=== PATIENT | male | born 1995 | race Caucasian/White ===

== ENCOUNTER 2022-07-29 16:41 | Emergency (ER) | payer SELFPAY | END 2022-07-29 19:18 | disposition home or self-care (01) | LOC: MW.ED 16:41 | DX: S03.02XA Dislocation of jaw, left side, initial encounter (principal); Z72.0 Tobacco use; Z91.09 Other allergy status, other than to drugs and biological substances | CPT/HCPCS: 70110; 70110-26; 99283 ==

== ENCOUNTER 2022-09-18 17:25 | Emergency (ER) | payer SELFPAY ==
[2022-09-18] MEDS ORDERED: Benzocaine 20% Topical Spray UD MUCMEM ONE (18:04)
[2022-09-18] MEDS ORDERED: Lidocaine 2% Viscous Solution 100 ML Bottle PO ONE (18:04)
[2022-09-18] MEDS ORDERED: Lidocaine 2% Viscous Solution 15 ML UD ONE (18:15)
[2022-09-18] MEDS ORDERED: Lidocaine 2% Viscous Solution 15 ML UD PO ONE (18:17)
== END 2022-09-18 18:33 | disposition home or self-care (01) ==
LOC: MW.ED 17:25
DX: K04.7 Periapical abscess without sinus (principal); Z72.0 Tobacco use; Z91.048 Other nonmedicinal substance allergy status
CPT/HCPCS: 99282; A9270-GY

== ENCOUNTER 2023-01-19 21:28 | Emergency (ER) | payer SELFPAY ==
[2023-01-19] MEDS ORDERED: Amoxicillin/Clavulanate K 875-125 MG Tab PO ONE (23:58)
== END 2023-01-20 00:41 | disposition home or self-care (01) ==
LOC: MW.ED 21:28
DX: H66.91 Otitis media, unspecified, right ear (principal); Z91.048 Other nonmedicinal substance allergy status
CPT/HCPCS: 99282; A9270

== ENCOUNTER 2023-07-29 05:09 | Emergency (ER) | payer SELFPAY ==
[2023-07-29] MEDS ORDERED: Acetaminophen 325 MG Tab PO ONE (05:55)
[2023-07-29] MEDS ORDERED: Ibuprofen 600 MG Tab PO ONE (05:55)
[2023-07-29 06:00] LABS: CORONAVIRUS COVID-19 NAA NEGATIVE (NEGATIVE); INFLUENZA A NAA NEGATIVE (NEGATIVE); INFLUENZA B NAA POSITIVE (NEGATIVE); RESPIRATORY SYNCYTIAL VIR NAA NEGATIVE (NEGATIVE)
== END 2023-07-29 06:15 | disposition home or self-care (01) ==
LOC: MW.ED 05:09
DX: J11.1 Influenza due to unidentified influenza virus with other respiratory manifestations (principal); Z91.048 Other nonmedicinal substance allergy status; Z20.822 Contact with and (suspected) exposure to COVID-19
CPT/HCPCS: 0241U; 71046; 99284; A9270